=== PATIENT | male | born 1945 | race Caucasian/White ===

== ENCOUNTER → 2022-03-22 08:31 | Outpatient (CLI) | payer MEDICARE, SELFPAY ==
[2022-03-22 10:15] LABS: Add Manual Diff / Slide Review NO; Basophils Absolute Auto 0 /uL (0-100); Basophils Percent Auto 0.5 % (0-2); Eosinophils Absolute Auto 100 /uL (0-450); Eosinophils Percent Auto 2.3 % (2-4); Hematocrit 39.8 % (41-53); Hemoglobin 13.6 g/dL (13.5-17.5); Lymphocytes Absolute Auto 500 /uL (1100-4500); Lymphocytes Percent Auto 13.4 % (25-40); Mean Corpuscular Hemoglobin 31.3 PG (26-34); Mean Corpuscular Volume 92.1 fL (80-100); Monocytes Absolute Auto 400 /uL (0-900); Monocytes Percent Auto 10.8 % (3-14); Neutrophils Absolute Auto 2500 /uL (1500-7000); Platelet Count 115 X10^3/uL (150-400); Red Blood Cell Count 4.32 X10^6/uL (4.5-5.9); Red Cell Distribution Width 12.8 % (11.6-14.8); White Blood Cell Count 3.5 X10^3/uL (4.5-11.0)
[2022-03-22 10:16] LABS: Appearance Urine UA CLEAR; Bilirubin Urine UA NEGATIVE (NEGATIVE); Color Urine UA YELLOW; Glucose Urine UA NEGATIVE (Negative); Ketones Urine UA NEGATIVE (NEGATIVE); Leukocyte Esterase Urine UA NEGATIVE (NEGATIVE); Nitrite Urine UA NEGATIVE (Negative); Occult Blood Urine UA NEGATIVE (Negative); Protein Urine UA NEGATIVE (Negative); Specific Gravity Urine UA <=1.005 (1.000-1.035); Urobilinogen Urine UA 0.2 E.U./dL (0.2); pH Urine UA 5.5 (4.5-8.0)
[2022-03-22 10:37] LABS: Hemoglobin A1C% w Est Avg Glu 5.3 % (4.0-6.0)
[2022-03-22 10:50] LABS: BUN Creatinine Ratio 19.4 (6-22); Blood Urea Nitrogen 18 mg/dL (9-20); Calcium 9.5 mg/dL (8.4-10.2); Carbon Dioxide 28 mmol/L (22-32); Chloride 103 mmol/L (98-107); Estimated Glomerular Filt Rate > 60 mL/min (>60); Glucose 87 mg/dL (80-110); HEMOLYSIS < 15 (0-50); Potassium 4.5 mmol/L (3.4-5.1); Sodium 140 mmol/L (137-145)
[2022-03-22 12:04] LABS: Bacteria Urine None Seen; Culture Indicated Urine Cult Not Indicated; RBC Urine None Seen (0-5/HPF); Squamous Epithelial Cell Urine 0-1 /HPF (0-5/HPF); WBC Urine None Seen (0-5/HPF)
== END ==
PROVIDERS: Referring Provider Orthopaedic Surgery; Visit Provider Orthopaedic Surgery
DX: Z01.818 Encounter for other preprocedural examination (principal); R73.9 Hyperglycemia, unspecified; Z01.812 Encounter for preprocedural laboratory examination; N39.0 Urinary tract infection, site not specified
CPT/HCPCS: 36415; 80048; 81001; 83036; 85025; 93005

== ENCOUNTER 2022-05-28 06:08 | Day surgery (SDC) | payer MEDICARE, SELFPAY ==
[2022-05-21 08:40] VITALS: BMI 87.7
[2022-05-28] VITALS (12 sets, daily range): BP systolic 113–155; BP diastolic 68–80; PULSE 65–84; RESP 13–18; TEMP 35.6–36.6; O2SAT 95–98; BMI 41.0
--- NOTE | 2022-05-28 | DI.RAD.S_ITS ---
PROCEDURE: XR PELVIS 1-2V INDICATIONS: TOTAL RIGHT HIP TECHNIQUE: 1 view of the lower pelvis acquired. COMPARISON: [facility], CR, XR HIP W PEL IF DONE RT 2V, 05/28/2022, 10:23. FINDINGS: Bones: Right hip arthroplasty operative changes, with hardware components in expected positions. The hip joint appears congruent. The visualized bony structures appear intact. Soft tissues: Operative soft tissue changes. No suspicious soft tissue densities. IMPRESSION: Operative changes of right hip arthroplasty. Dictated by: Jhon Moneral M.D. on 05/28/2022 at 10:58 Approved by: Jhon Monreal M.D. on 05/28/2022 at 10:59
--- NOTE | 2022-05-28 06:30 | DI.RAD.S_ITS ---
PROCEDURE: XR HIP W PEL IF DONE RT 2V INDICATIONS: ASHOK TECHNIQUE: AP pelvis and lateral view of the right hip acquired. COMPARISON: None. FINDINGS: Bones: Patient is status post right hip arthroplasty, with hardware components in expected positions. The hip joint appears congruent. The visualized bony structures appear intact. Soft tissues: Overlying postoperative changes are noted. No suspicious soft tissue densities. IMPRESSION: Postsurgical changes from right hip arthroplasty. No definite unexpected findings. Dictated by: Major Quiros M.D. on 05/28/2022 at 10:54 Approved by: Major Quiros M.D. on 05/28/2022 at 10:56
[2022-05-28] MEDS: VANCOMYCIN 1,000 MG/200 ML PIGGYBACK 200 MG IV (07:02)
[2022-05-28] MEDS: LACTATED RINGERS 1,000 ML 42 ML IV ×2 (07:05→09:01)
[2022-05-28] MEDS: ACETAMINOPHEN 325 MG TABLET 975 MG PO (07:27)
--- NOTE | 2022-05-28 07:45 | PM.PREOP ---
Pre-operative Note Interval Note History & Physical reviewed/Exam performed by Physician: Yes Changes to H&P: No
--- NOTE | 2022-05-28 07:46 | P.OP_ITS ---
Operative Date/Time/Diagnoses Date of procedure: 05/28/22 Time of procedure: 08:00 Pre-op diagnosis: right hip OA Post-op diagnosis: same Procedure & Clinicians Procedure: Right total hip arthroplasty posterior approach Same procedure as scheduled: Yes Indications: The patient has had progressively worsening right hip pain with radiographic changes consistent with arthritis. Non-operative management has failed and the patient has requested total hip replacement. The risks, benefits and alternatives to surgery were discussed with the patient prior to proceeding. Risks discussed included, but were not limited to, failure to relieve pain, leg length discrepancy, dislocation, stiffness, infection, nerve damage, deep venous thrombosis, pulmonary embolism, stroke, coma, heart attack, permanent paralysis and , as well as the potential need for eventual revision of the prosthetic. Surgeon: Dona Blankenship Business Account Specialist: Estuardo Lara Anesthesia Type: General and Spinal Operative Notes Findings: Severe right hip osteoarthritis, acceptable stability Closure Type: primary Specimen(s): none sent Prosthetic devices, grafts, tissues, transplants, or devices: Blankenship and nephew anthology standard offset size 9, 56 mm R3 cup neutral poly liner, one 6.5 mm screw, 36 x +4 cobalt femoral head Estimated Blood Loss (mL): 250 Blood products transfused: none Procedure in detail: The patient was seen in the pre-operative area, where the patient identified the right hip as the operative site and this was marked with my initials. The patient received pre-operative antibiotics and was taken to the operating room and placed on the operative table in the left lateral decubitus position after satisfactory anesthesia. A environmental protection forester out was performed. The right leg was prepared from the ankle to the iliac crest with ChloroPrep in the usual fashion and draped through sterile drapes. The hip was approached through an approximately 20 cm incision centered over the greater trochanter and curving gently posteriorly as it went proximally. This was carried sharply to the fascia mary, which was divided and retracted with a self retaining retractor. The trochanteric bursa was excised with care being taken to avoid the sciatic nerve, which was identified and protected throughout the case. The short external rotators were incised and the capsulomuscular flap was raised and tagged for later repair. The hip was dislocated, and a femoral neck osteotomy performed approximately 15 mm above the lesser trochanter. Retractors were placed around the femur. The canal was opened with a box cutting osteotome, followed by a T handled reamer and a lateralizing reamer. The chili pepper broach was then used, followed by sequential broaching until there was good stability of the broach in the femur. Retractors were placed to expose the acetabulum. The labrum and central soft tissues were removed. Reaming was performed initially going up in 2 mm increments, then 1 mm increments until good bite was obtained with an odd sized reamer. The cup 1 mm larger than the last reamer was then inserted using the appropriate anteversion guides. It was further stabilized with a single screw. A trial neutral liner was placed. The broach was placed in the canal. A trial head and neck were then placed and the hip relocated and checked for leg length and stability. An intraoperative film confirmed the component position and no evidence of fracture. The patient was stable in the position of sleep, of squatting, and could be put through a range of motion with 45 degrees internal rotation without dislocation. At 90 degrees flexion, internal rotation to 70? was possible before dislocation. This was felt to be satisfactory and the appropriate components were opened, and the trials were removed. The acetabular liner was impacted into position. The final stem was then impacted into the prepared femoral canal. A brief Betadine soak was performed while trialing with head options. The hip was meticulously irrigated with normal saline. Finally the femoral head was impacted onto the stem. The acetabulum was cleared of all material and the hip relocated one final time. The capsulomuscular flap was then repaired to the greater trochanter though an awl hole using the tag sutures. The short external rotators were repaired with a nonabsorbable suture. The fascia mary was closed with Vicryl. The subcutaneous layer was closed with barbed sutures and skin hailee. A Boubacar dressing was applied and the patient was taken to recovery having tolerated the procedure well. Complications: none Post-operative Condition: stable Disposition: Acute Care Plan for aftercare: The patient will be maintained on a standard total hip replacement protocol with weight bearing as tolerated and posterior hip precautions. The patient will receive Aspirin and sequential compression devices for DVT prophylaxis. The patient will be discharged home when safe for the home environment.
[2022-05-28 07:47] LABS: COVID19 -Nasal RAPID Negative (Negative)
[2022-05-28] MEDS: CEFAZOLIN 3 GM IN 0.9 % NACL 3 GM/100 ML PLAST..BAG IV (07:50)
[2022-05-28] MEDS: TRANEXAMIC ACID 1,000 MG VIAL 1000 MG INJ ×2 (08:25→09:50)
--- NOTE | 2022-05-28 08:38 | SUR.OPER ---
Lateral on padded OR bed. Gel axillary roll. Arms secured on padded armboard with pillow supporting top arm. Padded hip positioner braces x4 - anterior and posterior chest and pelvis. Additional gel pad used anterior pelvis. Gel pad under bottom leg from knee to foot and secured with tape over sheet.
[2022-05-28] MEDS: BUPIVACAINE 0.25% (PF) 60 ML, EPINEPHrine 0.3 MG INJ (08:46)
[2022-05-28] MEDS: BUPIVACAINE LIPOSOME 266 MG/20 ML VIAL INJ (08:46)
[2022-05-28] MEDS: BUPIVACAINE 0.25% (PF) VIAL 30 ML INJ (08:49)
--- NOTE | 2022-05-28 10:48 | SUR.PHASEI ---
Upon arrival to PACU reddened area to lt groin noted with abrasion
[2022-05-28] MEDS: hydrOXYzine 50 MG/ML INJ IM (10:56)
[2022-05-28] MEDS: ONDANSETRON 4 MG/2 ML INJ IV ×2 (10:56→21:23)
[2022-05-28] MEDS: OXYCODONE IR 5 MG TABLET PO ×3 (10:57→21:24)
[2022-05-28] MEDS: ACETAMINOPHEN 325 MG TABLET 650 MG PO ×3 (13:17→21:23)
[2022-05-28] MEDS: LACTATED RINGERS 1,000 ML 100 ML IV (13:19)
[2022-05-28] MEDS: OXYCODONE IR 10 MG TABLET PO ×2 (16:01→21:37)
[2022-05-28] MEDS: IBUPROFEN 400 MG TABLET PO ×2 (16:01→21:23)
[2022-05-28] MEDS: CEFAZOLIN VIAL 3 GM in SODIUM CHLORIDE 0.9% 100 ML IV (17:12)
--- NOTE | 2022-05-28 18:50 | PT.IIE ---
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) History of total right knee replacement Hx of fusion of cervical spine Hx of knee surgery S/P epidural steroid injection Medical History (Last Updated 05/21/22 @ 10:26 by Estela Penaloza RN) Afib Arrhythmia (2017) Arthritis Back pain CAD (coronary artery disease) CKD (chronic kidney disease) Diabetes History of injury History of blood transfusion History of bradycardia History of cardioversion Lower extremity edema Myocardial infarction SAMIRA on CPAP Polymyalgia rheumatica Psoriasis Shoulder pain Skin cancer Vertigo Physical Therapy Inpatient Evaluation/Re-Eval M1 PT/OT-IP Prior Functional Status Start: 05/28/22 18:25 Freq: NEEDED Status: Active Protocol: Document 05/28/22 18:25 [facility] (Rec: 05/28/22 18:50 [facility] [id number]) Medical Review Prior Functional Status Medical History Reviewed Yes Diet/Fluid Consistency Regular Communication WNL Mobility and Gait indep typically w/o AD. Has had flare ups of R hip w/pain in R hip requiring use of crutches Activities of Daily Living and IADL's indep w/ADLs and typically does the cooking and some cleaning. Does drive Social History Household Members significant other,none Living Arrangements House Number of Floors (Floors) One Floor Number of Stairs To Enter/Railing? 3STE w/rail Home Environment High Toilet,Walk in Shower Home Equipment Raised Toilet Seat w/Armrests, Grab Bars In Shower Additional Social History Comment built in shower seat that is 18 in; pt elevated his recliner by buildinga platform under to prep for surgery. Has been sleeping in it the past 3 weeks d/t pain and can sleep there if he needs to M2 PT-IP Current Condition Start: 05/28/22 18:25 Freq: NEEDED Status: Active Protocol: Document 05/28/22 18:25 [facility] (Rec: 05/28/22 18:50 [facility] [id number]) Physical Therapy Current Condition Current Condition Evaluation Date 05/28/22 Treatment Diagnosis R ASHOK Post M3 PT-IP Subjective Start: 05/28/22 18:25 Freq: NEEDED Status: Active Protocol: Document 05/28/22 18:25 [facility] (Rec: 05/28/22 18:50 [facility] [id number]) Subjective Physical Therapy Visit Type Type Initial Evaluation Visit Start Time 17:28 Visit Stop Time 18:14 Total Visit Minutes 46 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 Has always used crutches after surgeries Therapy Pain Assessment Pain When Pain Assessed During Mobility Pain Present Pain Present Pain Reported M4 PT-IP Mobility and Gait Start: 05/28/22 18:25 Freq: NEEDED Status: Active Protocol: Document 05/28/22 18:25 [facility] (Rec: 05/28/22 18:50 [facility] [id number]) PT-Bed Mobility Assessment Supine to Sit Supine to Sit Standby Assistance Sit to Supine Sit to Supine Standby Assistance Scooting Scooting to Edge of Bed Standby Assistance Scooting Up and Down in Bed Standby Assistance PT-Transfer Assessment Sit to and From Stand Sit to and from Stand Contact Guard Assistance, Moderate Assistance,Use of Upper Extremities Equipment Transfer Assistive Device Gait Belt,Front Wheeled Walker Orthotic/Prosthetic Devices or Brace: No Comments Mobility Comments supine to sit w/cues SBA scoot to EOB w/cues SBA; sit to stand w/mod A to FWW w/cues w/ bed elevated slightly d/t pt noting his bed is higher. pt amb in room 40ft CGA w/FWW w/ cues then sat on EOB CGA w/ cues. Pt stood again CGA w/ cues to FWW to stand to urinate then sat EOB SBA then SBA for into bed and scooting in bed and left w/call light in reach. Gait Assessment Gait Gait Assistance Required: Contact Guard Assist Distance (Feet) 40 Able to Maintain Weight Bearing Status Yes During Gait Assistive Devices Assistive Device Gait Belt,Front Wheeled Walker Orthotic/Prosthetic Devices or Brace: No Gait Deviations General Gait Pattern Antalgic,Decreased Stride Length,Flexed Trunk Factors Limiting Gait Function Factors Limiting Gait Function Decreased Strength,Pain PT-Balance Assessment Sitting Balance and Reactions Static Sitting Balance Ability Normal Dynamic Sitting Balance Ability Normal Standing Balance and Reactions Static Standing Balance Ability Good Dynamic Standing Balance Ability Fair Device Used FWW M5 PT-IP Objective Assessments Start: 05/28/22 18:25 Freq: NEEDED Status: Active Protocol: Document 05/28/22 18:25 [facility] (Rec: 05/28/22 18:50 [facility] [id number]) Orientation Orientation/Cognition Level of Alertness Alert Language Function Ability No Deficits Noted Safety Awareness Understands Safety Issues Memory Description No Deficits Noted Gross Range of Motion Lower Extremity ROM Assessment Right Impaired Strength Lower Extremity Strength Assessment Right Impaired Hip groslly R 3/5 M6 PT-IP Treatment Start: 05/28/22 18:25 Freq: NEEDED Status: Active Protocol: Document 05/28/22 18:25 [facility] (Rec: 05/28/22 18:50 [facility] [id number]) Physical Therapy Treatment Education Education Provided Precautions,Weight Bearing Status,Post-Op Packet,Safety Other Treatments Other Treatment Performed discussed how walker may be more beneficial than crutches but can try crutches tomorrow to see if appropriate or needs walker M7 PT-IP Assessment and Plan Start: 05/28/22 18:25 Freq: NEEDED Status: Active Protocol: Document 05/28/22 18:25 [facility] (Rec: 05/28/22 18:50 [facility] [id number]) PT Summary Assessment and Plan Potential Rehabilitation Potential Good Status of Condition at Evaluation Evolving Summary Impairments Pain,ROM,Strength,Balance, Coordination,Bed Mobility, Transfers,Gait,Activity Tolerance Assessment Summary Pt is day of s/p R ASHOK post approach w/good pain control overall and is demonstrating and reciting good understanding of precuations. He had difficulty the first time standinb ut did better the 2nd time w/CGA only. Pt did well with FWW amb but wants to use crutches so will require training w/crutches for home. He willr equire skilled PT during hospital stay to prep for return home safely. Goals Bed Mobility Goal Independent Transfer Goal Independent Gait Goal Independent Gait Distance 150ft Other Goals up/down 3 stairs w/rail SBA Days to Meet Goals 5 Frequency of Treatment Frequency Of Treatment Twice a Day Treatment Plan Physical Therapy Treatment Plan Bed Mobility Training,Transfer Training,Gait Training, Therapeutic Exercise,Balance Retraining,Post Op Education, Discharge Planning,Hot or Cold Pack,Neuromuscular Re-ed Other Recommendations and Next Treatment try crutch mobility and do Focus stairs, review ASHOK exercises Precautions Posterior Hip Precautions No Hip Flexion > 90 degrees,No Hip Internal Rotation,No Hip Adduction Weight Bearing Status Weight Bearing Status Weight Bear as Tolerated Recommendations To Nursing Amount of Assist Needed 1 Person Assist Discharge Recommendations PT Discharge Recommendations Home with Assistance, Outpatient PT Transportation Needs at Discharge Private Vehicle
[2022-05-28] MEDS: DOCUSATE 100 MG CAPSULE PO (21:23)
[2022-05-28] MEDS: ZOLPIDEM 5 MG TABLET PO (21:24)
[2022-05-28] MEDS: METOPROLOL IR 50 MG TABLET 100 MG PO (21:24)
[2022-05-28] MEDS: HYDROXYCHLOROQUINE 200 MG TABLET PO (21:30)
[2022-05-28] MEDS: DOXAZOSIN 2 MG TABLET 8 MG PO (21:30)
[2022-05-29] MEDS: CEFAZOLIN VIAL 3 GM in SODIUM CHLORIDE 0.9% 100 ML IV (00:47)
[2022-05-29] MEDS: OXYCODONE IR 10 MG TABLET PO ×2 (00:48→04:06)
[2022-05-29 01:50] VITALS: BP 124/68; PULSE 63; RESP 18; TEMP 36.3; O2SAT 97
[2022-05-29 04:10] VITALS: BP 131/76; PULSE 75; RESP 18; TEMP 36.3; O2SAT 98
[2022-05-29 06:40] LABS: Hematocrit 33.7 % (41-53); Hemoglobin 11.4 g/dL (13.5-17.5)
[2022-05-29] MEDS: ACETAMINOPHEN 325 MG TABLET 650 MG PO (07:18)
--- NOTE | 2022-05-29 07:49 | PM.DS.1 ---
History of Present Illness History of Present Illness Date Patient Seen: 05/29/22 Time Patient Seen: 07:49 Chief complaint: OPB Narrative: Operative Date/Time/Diagnoses Date of procedure: 05/28/22 Time of procedure: 08:00 Pre-op diagnosis: right hip OA Post-op diagnosis: same Procedure & Clinicians Procedure: Right total hip arthroplasty posterior approach Same procedure as scheduled: Yes Indications: The patient has had progressively worsening right hip pain with radiographic changes consistent with arthritis. Non-operative management has failed and the patient has requested total hip replacement. The risks, benefits and alternatives to surgery were discussed with the patient prior to proceeding. Risks discussed included, but were not limited to, failure to relieve pain, leg length discrepancy, dislocation, stiffness, infection, nerve damage, deep venous thrombosis, pulmonary embolism, stroke, coma, heart attack, permanent paralysis and , as well as the potential need for eventual revision of the prosthetic. Surgeon: Dona Blankenship Litigation Support Analyst: Estuardo Lara Anesthesia Type: General and Spinal Operative Notes Findings: Severe right hip osteoarthritis, acceptable stability Closure Type: primary Specimen(s): none sent Prosthetic devices, grafts, tissues, transplants, or devices: Blankenship and nephew anthology standard offset size 9, 56 mm R3 cup neutral poly liner, one 6.5 mm screw, 36 x +4 cobalt femoral head Estimated Blood Loss (mL): 250 Blood products transfused: none Discharge Providers Provider Discharge Date: 05/29/22 Primary care physician: TI Koenig Consults: 05/28/22 06:30 Consult to Anesthesiology Routine Comment: Consulting Provider: Anesthesiologist Reason for consultation: Regional block for post operative pain control 05/28/22 11:50 Consult to Discharge Planning Routine Comment: Consult to Physical Therapy Evaluate & Treat Comment: Physician Instructions: post op ASHOK protocol Discharge provider: Anyi Henry PA-C Summary Hospital Course Discharge Diagnosis: Right hip osteoarthritis, s/p right total hip arthroplasty Hospital Course: Mr Carroll's hospital course was unremarkable. On POD# 1, he was feeling well and wanted to go home. He takes oxycodone chronically for arthritis pain and denied the need for another rx for homegoing as he has been weaning himself down to save pills in anticipation of this surgery. He is chronically anticoagulated w/ Eliquis d/t h/o afib and this has been restarted. He is eating and voiding without difficulty. He was evaluated by PT and felt to be safe for d/c home; he will be evaluated by them and his caregiver will have training around 1000 today. Exam Vital Signs (past 8 hours): - 05/29/22 01:50 05/29/22 04:10 Temperature 97.3 F L 97.4 F L Pulse Rate 63 75 Respiratory Rate 18 18 Blood Pressure 124/68 131/76 Pulse Oximetry 97 98 Oxygen Flow Rate 0 0 Oxygen Delivery Method Room Air Oxygen Flow Rate 0 Narrative Exam Narrative: 5/5 strength in hip flexors, quadriceps, hamstrings, DF, PF, EHL on right. Sensation to light touch intact throughout RLE. Calves soft, compressible, nontender and without palpable cords or masses. SHANEKA dressing functioning, CDI. Objective Labs 05/29/22 06:20 Labs: Laboratory Results - last 24 hr 05/29/22 06:20 Hgb 11.4 L Hct 33.7 L PFSH Medical History (Updated 05/21/22 @ 10:26 by Estela Penaloza RN) Afib Arrhythmia (2017) Arthritis Back pain CAD (coronary artery disease) CKD (chronic kidney disease) Diabetes History of injury History of blood transfusion History of bradycardia History of cardioversion Lower extremity edema Myocardial infarction SAMIRA on CPAP Polymyalgia rheumatica Psoriasis Shoulder pain Skin cancer Vertigo Surgical History (Updated 05/21/22 @ 09:19 by Estela Penaloza RN) History of ankle surgery History of carpal tunnel surgery of left wrist History of carpal tunnel surgery of right wrist History of surgery History of surgery History of surgery (~2018) History of total left knee replacement 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 Pt denies the need for postoperative pain medication; has oxycodone, APAP, IBPN at home. Eliquis will be sufficient for post-op VTE prophylaxis. Outpt PT, f/u in office in 2 weeks. Discharge Plan Discharge Plan Patient Disposition: Home Discharge orders & Medications Discharge Orders: Discharge (Order); Ordered 05/29/22 Ordered By: Anyi Henry Prescriptions: Continued metoprolol tartrate 100 mg Tablet 100 mg PO BID acetaminophen 650 mg Tablet Extended Release 650 mg PO QID doxazosin 8 mg Tablet 8 mg PO BEDTIME zolpidem 5 mg Tablet 5 mg PO BEDTIME furosemide 20 mg Tablet 20 mg PO DAILY hydroxychloroquine 200 mg Tablet 200 mg PO BID oxycodone 5 mg Tablet 5 mg PO TID Eliquis 5 mg Tablet 5 mg PO BID potassium citrate 99 mg Capsule 99 mg PO DAILY Follow up/Referrals: Domenic Polo ARNP [Primary Care Provider] - Dona Blankenship MD [Physician] - As previously scheduled (Follow up w/ Chelsie Larose PA-C, on 06/12/2022 @ 1:00 pm at [facility] office in [place].) Diet/Activity/Treatments Diet: Diet as Tolerated Activity: Weightbearing as tolerated to right leg. Posterior hip precautions. Cold/Heat Therapy: Ice to hip as needed for pain. Skin/Wound/Dressing Care Report to your healthcare provider any signs of infection, such as:: chills, fever, night sweats, unusual drainage and unusual redness Dressing: May shower. Leave SHANEKA dressing in place until follow up in office. Battery light will start flashing in 5-7 days; when that happens, you can cut off battery pack and dispose of it. No bathing or otherwise soaking incision. Call the office if the dressing becomes saturated inside. Visit Report/Discharge Packet Instructions: DI for Hip Replacement Stand Alone Forms: Patient Portal/API, Surgery Discharge Discharge Data Primary Care Provider: Domenic Polo Attending Provider: Dona Blankenship
[2022-05-29 08:20] VITALS: BP 134/76; PULSE 78; RESP 16; TEMP 36.7; O2SAT 99
[2022-05-29] MEDS: OXYCODONE IR 5 MG TABLET PO (08:47)
[2022-05-29] MEDS: HYDROXYCHLOROQUINE 200 MG TABLET PO (08:47)
[2022-05-29] MEDS: FUROSEMIDE 20 MG TABLET PO (08:48)
[2022-05-29] MEDS: METOPROLOL IR 50 MG TABLET 100 MG PO (08:48)
[2022-05-29] MEDS: DOCUSATE 100 MG CAPSULE PO (08:48)
--- NOTE | 2022-05-29 10:05 | PT.IPTN ---
Current Diagnoses Unilateral primary osteoarthritis, right hip (05/28/22) Surgery Performed Operation Date: 05/28/22 07:45 Actual Procedures p Total Hip Arthroplasty(Right) - Dona Blankenship MD Physical Therapy Treatment Note M2 PT-IP Current Condition Start: 05/28/22 18:25 Freq: NEEDED Status: Active Protocol: Document 05/28/22 18:25 [facility] (Rec: 05/28/22 18:50 [facility] [id number]) Physical Therapy Current Condition Current Condition Evaluation Date 05/28/22 Treatment Diagnosis R ASHOK Post M3 PT-IP Subjective Start: 05/28/22 18:25 Freq: NEEDED Status: Active Protocol: Document 05/29/22 10:38 TS (Rec: 05/29/22 11:01 TS [id number]) Subjective Physical Therapy Visit Type Type Treatment Note Visit Start Time 10:05 Visit Stop Time 10:30 Total Visit Minutes 25 Number of [employer] Visits 1 Physical Therapy Visit Comments Patient Goals D/C home, plans to use crutches. Therapy Pain Assessment Pain When Pain Assessed During Mobility Pain Present Pain Present Pain Reported M4 PT-IP Mobility and Gait Start: 05/28/22 18:25 Freq: NEEDED Status: Active Protocol: Document 05/29/22 10:38 TS (Rec: 05/29/22 11:01 TS [id number]) PT-Bed Mobility Assessment Supine to Sit Supine to Sit Contact Guard Assistance Sit to Supine Sit to Supine Standby Assistance Scooting Scooting to Edge of Bed Standby Assistance Scooting Up and Down in Bed Standby Assistance PT-Transfer Assessment Sit to and From Stand Sit to and from Stand Standby Assistance Equipment Transfer Assistive Device None,Gait Belt,Front Wheeled Walker Orthotic/Prosthetic Devices or Brace: No Comments Mobility Comments Pt found resting in bed, spouse in room, agreeable to PT session. Discussed posterior hip precautions, recalled 2/3. Supine to sit SBA with BUE support with handrail assist HOB elevated 20D. Scooted to EOB CGA for psoterior lean BUE support with handrail. Sit to stand x1 with no AD, x1 with AD, no BUE support. Ambulated SBA with crutches 2 point step to gait ~250, reported some weakness, no signs buckling or LOB. Stairs x3 SBA w/ RUE handrail and LUE crutch assist . Pt ambulated back to room, sit to supine SBA with HOB elevated, BUE support. Pt wwas left in bed with call light nearby, spouse in room, all needs met. Gait Assessment Gait Gait Assistance Required: Contact Guard Assist Distance (Feet) 250 Able to Maintain Weight Bearing Status Yes During Gait Assistive Devices Assistive Device Gait Belt,Front Wheeled Walker Orthotic/Prosthetic Devices or Brace: No Gait Deviations General Gait Pattern Antalgic,Decreased Stride Length,Flexed Trunk,Step-to Gait Factors Limiting Gait Function Factors Limiting Gait Function Decreased Strength,Pain Comments Gait Comments See mobility comments Stair Climbing Assessment Comments Stair Climbing Comments See mobility comments. PT-Balance Assessment Sitting Balance and Reactions Static Sitting Balance Ability Normal Dynamic Sitting Balance Ability Normal Standing Balance and Reactions Static Standing Balance Ability Good Dynamic Standing Balance Ability Fair Device Used FWW Comments Other Balance Tests/Deviations/Treatment Pt demosntrates good midline : with no UE support sitting EOB . Static balance normal with no AD/with AD. M5 PT-IP Objective Assessments Start: 05/28/22 18:25 Freq: NEEDED Status: Active Protocol: Document 05/28/22 18:25 [facility] (Rec: 05/28/22 18:50 [facility] [id number]) Orientation Orientation/Cognition Level of Alertness Alert Language Function Ability No Deficits Noted Safety Awareness Understands Safety Issues Memory Description No Deficits Noted Gross Range of Motion Lower Extremity ROM Assessment Right Impaired Strength Lower Extremity Strength Assessment Right Impaired Hip groslly R 3/5 M6 PT-IP Treatment Start: 05/28/22 18:25 Freq: NEEDED Status: Active Protocol: Document 05/29/22 10:38 TS (Rec: 05/29/22 11:01 [id number]) Physical Therapy Treatment Education Education Provided Precautions,Weight Bearing Status,Post-Op Packet,Safety Other Treatments Other Treatment Performed Discussed posterior hip precautions with spouse and pt , pt recalled 2/3. M7 PT-IP Assessment and Plan Start: 05/28/22 18:25 Freq: NEEDED Status: Active Protocol: Document 05/29/22 10:38 TS (Rec: 05/29/22 11:01 TS [id number]) PT Summary Assessment and Plan Potential Rehabilitation Potential Good Status of Condition at Evaluation Evolving Summary Impairments Pain,ROM,Strength,Balance, Coordination,Bed Mobility, Transfers,Gait,Activity Tolerance Assessment Summary Pt continues to be SBA for bed mobiltiy, progressed his sit to stands to SBA with no AD/ with AD. Increased ambulation distance to ~250' SBA with crutches, performed stairs x3 SBA with RUE handrail support and LUE crutch. Educated pt on post-op precautions, recalled 2/3. PT is recommending pt return home with spouse and assist when needed. Pt will be attending outpatient PT when appopriate. Goals Bed Mobility Goal Independent Transfer Goal Independent Gait Goal Independent Gait Distance 150ft Other Goals up/down 3 stairs w/rail SBA Days to Meet Goals 5 Frequency of Treatment Frequency Of Treatment Twice a Day Treatment Plan Physical Therapy Treatment Plan Bed Mobility Training,Transfer Training,Gait Training, Therapeutic Exercise,Balance Retraining,Post Op Education, Discharge Planning,Hot or Cold Pack,Neuromuscular Re-ed Other Recommendations and Next Treatment Continue to educate on Focus precautions, bed exercises, progress ambulation and transfers. Precautions Posterior Hip Precautions No Hip Flexion > 90 degrees,No Hip Internal Rotation,No Hip Adduction Weight Bearing Status Weight Bearing Status Weight Bear as Tolerated Recommendations To Nursing Amount of Assist Needed Standby Assistance,1 Person Assist Discharge Recommendations PT Discharge Recommendations Home with Assistance, Outpatient PT Transportation Needs at Discharge Private Vehicle
--- NOTE | 2022-05-29 11:02 | PC.NURSE ---
Pt is dressed and ready for discharge home with S.O.. IV has been removed. Belongings are packed up. Went over d/c instructions with Pt-discussed d/c meds, time of last dose, reviewed stroke education, s/s of infection, wbat, and following posterior hip precautions. No driving while taking narcotics and drink plenty of fluids to prevent constipation or dehydration. Pt denied further questions and was taken out via w/c by RN to pov with S.O. and all belongings.
== END 2022-05-29 11:05 | disposition home or self-care (01) ==
LOC: OR 06:11 → AC 06:12
PROVIDERS: PCP Registered Nurse; Referring Provider Orthopaedic Surgery; Visit Provider Orthopaedic Surgery
PROC: 0SR90JZ Replacement of Right Hip Joint with Synthetic Substitute, Open Approach (ICD-10-PCS; CPT 27130; principal; 2022-05-28 07:45)
DX: M16.11 Unilateral primary osteoarthritis, right hip (principal)
CPT/HCPCS: 27130; 36415; 72170; 73502; 85014; 85018; 87635; 97116; 97162; 97530; C1776; C9803; C9290; J0171; J0690; J1100; J2274; J2405; J2704; J3010; J3410; J3490